=== PATIENT | male | born 1965 | race African-American/Black ===

== ENCOUNTER 2018-03-30 18:08 | Emergency (ER) | payer OTHER ==
[2018-03-30 18:27] VITALS: BP 133/80
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
== END 2018-03-30 22:53 | disposition home or self-care (01) ==
LOC: ER 18:08
DX: S80.12XA Contusion of left lower leg, initial encounter (principal); S16.1XXA Strain of muscle, fascia and tendon at neck level, initial encounter; M94.0 Chondrocostal junction syndrome [Tietze]; M54.2 Cervicalgia; M54.9 Dorsalgia, unspecified; R07.81 Pleurodynia; M79.605 Pain in left leg; V89.2XXA Person injured in unspecified motor-vehicle accident, traffic, initial encounter; I10 Essential (primary) hypertension; F17.210 Nicotine dependence, cigarettes, uncomplicated
CPT/HCPCS: 72040; 72070; 99283

== ENCOUNTER 2019-12-04 06:49 | Emergency (ER) | payer OTHER ==
[2019-12-04] MEDS ORDERED: TETRACAINE HCL 0.5% OPH SOLN 4 ML OU ONE (08:09)
--- NOTE | 2019-12-04 08:11 | ER Document Report ---
ED General - General Chief Complaint: Eye Problem Stated Complaint: EYE PAIN Time Seen by Provider: 12/04/19 08:08 Primary Care Provider: MICHOACANO MATOS DO [ACTIVE STAFF] - Follow up in 3-5 days Notes: Patient presents with left eye pain redness and tearing. He felt like there was something in his eye yesterday after work but does not member any thing going in his eye. 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 Does not wear contacts or glasses. Vision is blurred when the eyes closed but he says is clear when he can open his eye. TRAVEL OUTSIDE OF THE [place] IN LAST 30 DAYS: No - Related Data Allergies/Adverse Reactions: No Known Allergies Allergy (Unverified 03/30/18 18:09) Past Medical History - General Information source: Patient - Social History Smoking Status: Current Every Day Smoker Frequency of alcohol use: Social Drug Abuse: None Family History: Reviewed & Not Pertinent Renal/ Medical History: Denies: Hx Peritoneal Dialysis Review of Systems - Review of Systems Notes: REVIEW OF SYSTEMS GEN: Denies fever, chills, weight loss ENT: Denies sore throat, nasal discharge, ear pain EYES see HPI charge CV: Denies chest pain, palpitations, edema RESP: Denies cough, shortness of breath, wheezing GI: Denies abdominal pain, nausea, vomiting, diarrhea MSK: Denies joint pain/swelling, edema, SKIN: Denies rash, skin lesions LYMPH: Denies swollen glands/lymph nodes NEURO: Denies headache, focal weakness or numbness, dizziness PSYCH: Denies depression, suicidal or homicidal ideation PHYSICAL EXAMINATION General: No acute distress, well-nourished Head: Atraumatic, normocephalic ENT: Mouth normal, oropharynx moist, no exudates or tonsillar enlargement Eyes: Mild lid edema on the left. Right eye comp and injected conjunctiva on the left with a quiet anterior chamber and a large corneal abrasion between 9 and 12:00 not in the visual axis. No foreign body beneath the lids. Neck: No JVD, supple, no guarding CVS: Normal rate, regular rhythm, no murmurs Resp: No resp distress, equal and normal breath sounds bilaterally GI: Nondistended, soft, no tenderness to palpation, no rebound or guarding Ext: No deformities, no edema, normal range of motion in upper and lower ext Back: No CVA or midline TTP Skin: No rash, warm Lymphatic: No lymphadeopathy noted Neuro: Awake, alert. Face symmetric. GCS 15. Physical Exam - Vital signs Vitals: Temp Pulse Resp BP Pulse Ox 98.8 F 81 18 143/84 H 98 12/04/19 07:27 12/04/19 07:27 12/04/19 07:27 12/04/19 07:27 12/04/19 07:27 Course - Re-evaluation Re-evalutation: 12/04/19 14:45 Corneal abrasion without foreign body Polytrim, follow-up ophthalmology given the size of it. When his eye was anesthetized and he opened it he could actually see me quite clearly grossly with no double vision or blurry vision. He will follow-up with Dr. Matos as an outpatient. I have discussed with the patient there likely diagnosis, aftercare plan, follow-up plans and my usual and customary return precautions. They verbalized understanding of this. - Vital Signs Vital signs: Temp Pulse Resp BP Pulse Ox 98.8 F 81 18 143/84 H 98 12/04/19 07:27 12/04/19 07:27 12/04/19 07:27 12/04/19 07:27 12/04/19 07:27 Discharge - Discharge Clinical Impression: Corneal abrasion Qualifiers: Encounter type: initial encounter Laterality: left Qualified Code(s): S05.02XA - Injury of conjunctiva and corneal abrasion without foreign body, left eye, initial encounter Condition: Good Disposition: HOME, SELF-CARE Instructions: Antibiotic Therapy ([facility]), Corneal Abrasion ([facility]) Prescriptions: Polymyxin B Sulf/Trimethoprim [Polytrim Eye Drops] 1 drop OD Q3H #10 ml Forms: Return to Work Referrals: MICHOACANO MATOS DO [ACTIVE STAFF] - Follow up in 3-5 days
[2019-12-04 08:28] VITALS: BP 143/84
== END 2019-12-04 08:27 | disposition home or self-care (01) ==
LOC: ER 06:49
DX: S05.02XA Injury of conjunctiva and corneal abrasion without foreign body, left eye, initial encounter (principal); H57.12 Ocular pain, left eye; H53.8 Other visual disturbances; X58.XXXA Exposure to other specified factors, initial encounter; F17.200 Nicotine dependence, unspecified, uncomplicated
CPT/HCPCS: 99283